=== PATIENT | female | born 1940 | race Asian ===

== ENCOUNTER 2020-07-15 14:05 | Emergency (ER) | payer MEDICAID ==
[~2020-07-15] VITALS: Ht 157.5 cm; Wt 60.3 kg
[~2020-07-15 14:05] MED LIST: ADA30 PO; AMLODIPINE BESY10 M2 PO; APR25 PO; BG FS; CLONIDINE HCL0.2 MG PO; COL100 PO; COZ50 PO; COZAAR50 M1 PO; DEXPF IV; FENOFIBRATE MIC43 MG PO; HUMULIN R100 U/1 M1 SC; KLO0.5 PO; L20 PO; LANTI SQ; LASIX20 MG PO; LIPI10 PO; LIPI20 PO; METOPROLOL TART25 M1 PO; NIFEDIPINE20 MG PO; NOR10 PO; TRA100 PO; TRAZODONE100 MG PO; TRAZODONE150 M1 PO; TYL325 PO; ZESTRIL10 MG PO; ZETIA10 M1 PO; ZOFI IV; [UNRECOGNIZED DRUG - CODE] IV
[2020-07-15 14:41] VITALS: Ht 157.5 cm; Wt 60.3 kg
[2020-07-15 17:48] VITALS: BP 179/82
== END 2020-07-15 17:48 | disposition home or self-care (01) ==
LOC: ED 14:05
DX: T83.091A Other mechanical complication of indwelling urethral catheter, initial encounter (principal); X58.XXXA Exposure to other specified factors, initial encounter; Y93.89 Activity, other specified; Y92.89 Other specified places as the place of occurrence of the external cause; Y99.8 Other external cause status